=== PATIENT | male | born 1975 | race Caucasian/White ===

== ENCOUNTER → 2018-04-28 | Day surgery (SDC) | payer OTHER ==
[~2018-04-28] MED LIST: PROPOFOL 20 ML IV
[2018-04-28] MEDS: IV RINGERS,LACTATED 1000ML 1,000 ML IV (16:11)
== END | disposition home or self-care (01) ==
LOC: SURG 15:31
DX: K21.0 Gastro-esophageal reflux disease with esophagitis (principal); K44.9 Diaphragmatic hernia without obstruction or gangrene; I10 Essential (primary) hypertension; E66.9 Obesity, unspecified; Z72.89 Other problems related to lifestyle; Z98.890 Other specified postprocedural states
CPT/HCPCS: 43239; 88305; J2704

== ENCOUNTER → 2019-01-18 | Outpatient (CLI) | payer OTHER ==
[2018-04-28 17:15] VITALS: BP 126/74
[~2019-01-18] MED LIST changes: +DEXL60CA2 PO; +DEXT10TA23 PO; +DEXT20CA7 PO; +GINK120C PO; +IBUP-1060 PO; +LISI-334 PO; -PROPOFOL 20 ML IV
--- NOTE | 2019-01-18 18:22 | KCIC ---
MRI of the cervical spine without contrast 01/18/2019 CLINICAL HISTORY: Chronic neck pain with right arm weakness. TECHNIQUE: Unenhanced T1-weighted, T2-weighted and inversion recovery sagittal and gradient echo and T2-weighted axial images of the cervical spine were obtained. FINDINGS: Mild lateral curvature of the cervical spine is seen convex to the right. There is straightening of the normal cervical lordosis. Degenerative signal changes are seen involving all of the disks of the cervical spine. Degenerative signal changes are seen within the marrow surrounding these discs. No area of abnormal signal intensity is seen involving the cervical spinal cord. At the C2-3 and C3-4 disc spaces there are minimal generalized disc bulges. Degenerative changes are seen involving the uncovertebral and facet joints bilaterally. These findings do not result in significant central spinal canal or neural foraminal stenosis. At the C4-5 disc space there is a mild generalized disc bulge. Superimposed on this disc bulge is a right paracentral focal disc protrusion. This measures 3 mm in AP diameter. Degenerative changes are seen involving the uncovertebral and facet joints bilaterally. These findings do not result in significant central spinal canal or neural foraminal stenosis. At the C5-6 disc space there is a mild generalized disc bulge. Degenerative changes are seen involving the uncovertebral and facet joints bilaterally. These findings do not result in significant central spinal canal or neural foraminal stenosis. At the C6-7 disc space there is a moderate generalized disc bulge. This is eccentric to the right. Degenerative changes are seen involving the uncovertebral and facet joints, right greater than left. These findings when combined do not result in significant central spinal canal stenosis. Mild to moderate right neural foraminal stenosis is seen. The left neural foramen is patent. At the C7-T1 disc space there is a minimal generalized disc bulge. Degenerative changes are seen involving the facet joints bilaterally. These findings do not result in significant central spinal canal or neural foraminal stenosis. IMPRESSION: Degenerative changes are seen throughout the cervical spine. These findings do not result in significant central spinal canal stenosis at any level. Mild to moderate right neural foraminal stenosis is seen at C6-7. Electronically signed by: Chinedu Echevarria MD (01/18/2019 6:19 PM) [id number]
== END | disposition home or self-care (01) ==
LOC: KCIC MRI 08:25
PROVIDERS: ATTEND Orthopaedic Surgery
DX: M47.892 Other spondylosis, cervical region (principal); M48.02 Spinal stenosis, cervical region; M47.893 Other spondylosis, cervicothoracic region; M50.221 Other cervical disc displacement at C4-C5 level; Z90.49 Acquired absence of other specified parts of digestive tract
CPT/HCPCS: 72141

== ENCOUNTER → 2019-02-17 | Outpatient (CLI) | payer OTHER ==
[2018-04-28 17:15] VITALS: BP 126/74
[~2019-02-17] MED LIST changes: +IOHEXOL 180 MG/ML 10 ML VIAL. ONE; +methylPREDNISolone ACETATE 40 MG/ML VIAL. ONE; +methylPREDNISolone ACETATE 80 MG/ML VIAL. ONE
--- NOTE | 2019-02-18 04:08 | PAIN ---
DATE OF SERVICE: 02/17/2019 CHIEF COMPLAINT: Neck and right upper extremity pain. HISTORY OF PRESENT ILLNESS: This is a 43-year-old male who presents with history of pain in the right base of the neck, right shoulder radiating to the arm and hand with some numbness and tingling in the arm and shoulder, as well as the upper back and into the right base of the neck. The patient reports it has been going on since about 8 months ago, not a result of any specific injury or action he is aware of, but was working out, lifting, noticed that his right shoulder had a paradoxical movement with pulling the arm down when the shoulder was going up, The patient reports he had an MRI scan after that. MRI scan results showing C6-C7 [id number] right neural foraminal stenosis with moderate generalized disk bulge eccentric to the right; also disk bulge mild C5-C6, C4-C5 and C7-T1. The patient voiced complete no loss of motor function, but significant fatigability to the right arm compared to the left with repetitive motions, reaching over his head with his right arm, reaching back to put his arms to the sleeve of a jacket or shirt. The patient reports it awakens him from sleep about 2-3 times a night, does not affect his bowel or bladder control or ability to walk. He has had physical therapy, chiropractic treatment, doing exercise currently and working out currently all of which helped the pain to a mild extent. He also has a cervical traction device he has at home, which he has been using; inflatable cervical traction, which helps as well. The patient has tried ibuprofen as well as tramadol, both of these do decrease the pain to a mild extent as well. The patient reports disability rate from 0-10, 10 being the worst, is 3 with family and home responsibilities, social activity, 6 with recreation, 7 with sexual behavior, 5 with occupation, 2 with self-care and 2 with life support activities. The patient reports no complete loss of function, but again significant fatigability and no symptoms on the left upper extremity. PAST MEDICAL HISTORY: Significant for hypertension, previous appendectomy, otherwise the patient has been in good health. CURRENT MEDICATIONS: Include Adderall, ibuprofen, Dexilant and Ginkgo biloba. ALLERGIES: The patient has no known drug allergies. FAMILY HISTORY: Significant for diabetes on the patient's father's side. SOCIAL HISTORY: The patient drinks alcohol 1-2 beers 2-3 times a week. Does not smoke. Does not use any illegal, illicit or recreational drugs. 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. REVIEW OF SYSTEMS: The patient's review of systems is positive for those items mentioned in history of present illness. All systems reviewed and otherwise negative. It is complete, full and well documented on the patient's chart. PHYSICAL EXAMINATION: VITAL SIGNS: The patient's blood pressure is 140/102, pulse 91, respirations 18, temperature is 98.6 degrees Fahrenheit, height 6 feet 1 inch, weight is 279 pounds. GENERAL: The patient is awake, alert, oriented, appropriate, very pleasant demeanor. HEENT: Head shows normocephalic, atraumatic. Extraocular movements are intact and symmetrical. Oral cavity: Mucous membranes moist and pink. Dentition is intact. NECK: Shows anterior throat supple without palpable lymphadenopathy noted. Swallow reflex symmetrical. CHEST: Shows normal with inspection. Breath sounds are clear to auscultation bilaterally. HEART: Shows S1, S2 clear. No murmurs auscultated. ABDOMEN: Soft, nontender, nondistended. No palpable organomegaly is noted. No rebound or guarding demonstrated. BACK: Shows spine grossly in the midline. Normal-appearing thoracic kyphosis, cervical lordotic curvature and lumbar lordotic curvature. Cervical paraspinous muscle shows symmetrical on inspection, on palpation shows some moderate tenderness inferior in the right side compared to the left inferior only, cervical paraspinous musculature, also into the superior medial trapezius on the right side compared to the left. No specific trigger points. The patient has good rotational motion of cervical spine, both laterally greater than 45 degrees right and left as well as full extension, full forward flexion without pain reported. EXTREMITIES: Upper extremities showed deep tendon reflexes 2+ in the biceps and triceps tendons. 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 Peripheral pulses are 2+ radial distribution. Shoulder shrug is strong and intact without loss of strength on resistance as is abduction of shoulder to 90 degrees without loss of strength as well. SKIN: Warm and dry, good turgor. No edema. No sores, rashes or bruising throughout. IMPRESSION: This is a 43-year-old male with: 1. Approximately 8-month history of increasing pain at the base of the neck, right upper extremity and shoulder in a radicular fashion in the right arm. 2. MR scan of cervical spine as noted. 3. Hypertension. PLAN: Options were discussed with the patient including conservative management, physical therapy, interventional technique. He would like to proceed with interventional technique. We discussed a cervical epidural steroid injection using description as well as anatomical models to describe the procedure. Risks were then discussed including, but not limited to bleeding, infection, possibility of epidural hematoma, subsequent neurologic compromise, dural puncture, headaches, spinal cord and/or nerve damage, side effects of steroid medication and poor results regarding pain control. The patient understands and wished to proceed. The patient will return to clinic in approximately 2 weeks for followup, was counseled as to return appointment, activity level and side effects to be aware of. DIAGNOSIS: Cervical radiculopathy with cervical degenerative disk disease. PROCEDURE: Cervical epidural steroid injection, translaminar approach C6-C7 level using C-arm fluoroscopic guidance under sterile prep and drape using local anesthetic. MEDICATION INJECTED: A total of 120 mg Depo-Medrol plus 5 mL of preservative-free normal saline and 2 mL of Isovue for contrast. CONDITION ON DISCHARGE: Stable. The patient tolerated procedure well, had no complications. ISSA STERLING MD DR: MELY/burke JOB#: [id number] / [id number] SARAH Lynn
== END | disposition home or self-care (01) ==
LOC: PNCL 10:42
PROVIDERS: ATTEND Anesthesiology
DX: M50.123 Cervical disc disorder at C6-C7 level with radiculopathy (principal); I10 Essential (primary) hypertension; Z90.49 Acquired absence of other specified parts of digestive tract; Z79.899 Other long term (current) drug therapy; Z83.3 Family history of diabetes mellitus; Z72.89 Other problems related to lifestyle
CPT/HCPCS: 62321; J1030; J1040; Q9965